=== PATIENT | male | born 1970 | race Caucasian/White ===

== ENCOUNTER 2025-01-18 13:11 | Emergency (ER) | payer MEDICAID ==
[~2025-01-18] VITALS: Ht 177.8 cm; Wt 100.0 kg
[2025-01-18 13:20] VITALS: O2SAT 98
[2025-01-18 13:35] VITALS: BP 140/79; PULSE 99; RESP 18; TEMP 37.1; O2SAT 100
[2025-01-18] MEDS: TETANUS, DIPHTHERIA, PERTUSSIS VAC/PF 0.5ML (>10YR OLD) IM ONE (15:47)
[2025-01-18] MEDS: LIDOCAINE HCL/PF 1% 10 MG/ML 5ML VIAL INFIL ONE (15:51)
[2025-01-18] MEDS: BACITRACIN ZINC OINT UDPKT TOP ONE (15:51)
[2025-01-18] MEDS ORDERED: CEPH500C2 MT (16:01)
== END 2025-01-18 16:16 | disposition home or self-care (01) ==
LOC: ER 13:11
DX: S61.210A Laceration without foreign body of right index finger without damage to nail, initial encounter (principal); I10 Essential (primary) hypertension; E11.9 Type 2 diabetes mellitus without complications; W23.0XXA Caught, crushed, jammed, or pinched between moving objects, initial encounter; Y93.89 Activity, other specified; Y92.89 Other specified places as the place of occurrence of the external cause; Y99.8 Other external cause status
CPT/HCPCS: 73140; 90715; 12001; 90471; 99283; J2003; Z7610